=== PATIENT | female | born 1980 | race Caucasian/White ===

== ENCOUNTER 2021-03-08 10:54 | Emergency (ER) | payer BC ==
[2021-03-08 11:20] LABS: BASO # 0.03 (0.02-0.10); EOS # 0.07 (0.04-0.40); EOS % 0.9 % (1.0-5.0); HEMATOCRIT 39.5 % (37.0-47.0); HEMOGLOBIN 13.5 g/dL (12.5-16.0); LYMPH# 1.19 (1.50-4.00); MEAN CELL VOLUME 85 fl (78-100); MEAN CORPUSCULAR HEMOGLOBIN 29 pg (27-31); MEAN CORPUSCULAR HGB CONC 34 g/dL (33-37); MEAN PLATELET VOLUME 10.4 fl (7.4-10.4); MONO # 0.62 (0.20-0.80); NEU # 5.69 (1.40-6.50); PLATELET COUNT 256 K/mm3 (130-400); RED BLOOD COUNT 4.64 M/mm3 (4.10-5.30); RED CELL DISTRIBUTION WIDTH 12.4 % (11.5-14.5); WHITE BLOOD COUNT 7.6 K/mm3 (4.8-10.8)
[2021-03-08 11:32] LABS: ALBUMIN 4.5 g/dL (3.5-5.0); POTASSIUM 4.1 mmol/L (3.5-5.1); SODIUM 139 mmol/L (136-145)
[2021-03-08 11:33] LABS: CALCIUM 9.6 mg/dL (8.3-10.5)
[2021-03-08 11:34] LABS: GLUCOSE 115 mg/dL (65-105); TOTAL PROTEIN 7.3 g/dL (6.4-8.3)
[2021-03-08 11:36] LABS: CARBON DIOXIDE 23 mmol/L (22-29); TOTAL BILIRUBIN 0.7 mg/dL (0.2-1.2)
[2021-03-08 11:40] LABS: AST-SGOT 17 U/L (5-34)
[2021-03-08 11:41] LABS: ALT/SGPT 21 U/L (0-55); LIPASE 15 U/L (8-78)
[2021-03-08 11:48] LABS: TROPONIN-I < 0.03 ng/mL (<0.030)
[2021-03-08 11:54] LABS: URINE APPEARANCE CLEAR; URINE BILIRUBIN NEGATIVE (NEGATIVE); URINE BLOOD NEGATIVE (NEGATIVE); URINE COLOR YELLOW; URINE GLUCOSE NEGATIVE (NEGATIVE); URINE KETONE NEGATIVE (NEGATIVE); URINE LEUKOCYTE ESTERASE NEGATIVE (NEGATIVE); URINE NITRATE NEGATIVE (NEGATIVE); URINE PROTEIN(semi-quant) NEGATIVE (NEGATIVE); URINE UROBILINOGEN NORMAL (NORMAL); URINE WBC 0-1 /hpf (0-3)
[2021-03-08 11:54] LABS: PROTHROMBIN TIME 10.8 SECONDS (9.0-12.0)
[2021-03-08] MEDS ORDERED: PRILOSEC 20MG20 MG PO (12:55)
[2021-03-08 13:15] VITALS: BP 137/90
== END 2021-03-08 13:15 | disposition home or self-care (01) ==
LOC: ED 10:54
PROVIDERS: Nurse Practitioner
DX: K21.9 Gastro-esophageal reflux disease without esophagitis (principal)

== ENCOUNTER 2021-04-24 20:15 | Emergency (ER) | payer BC ==
[~2021-04-24 20:15] MED LIST: PRILOSEC 20MG20 MG PO
[2021-04-24] MEDS ORDERED: CARAFATE1 GM/10 M1 PO (20:26)
[2021-04-24] MEDS ORDERED: PANTOPRAZOLE SO40 MG PO (20:26)
[2021-04-24] MEDS ORDERED: AUGMENTIN 875-1 EAC1 PO (20:27)
[2021-04-24 21:35] LABS: ALBUMIN 4.2 g/dL (3.5-5.0)
[2021-04-24 21:36] LABS: BASO # 0.03 (0.02-0.10); EOS # 0.05 (0.04-0.40); EOS % 0.7 % (1.0-5.0); HEMATOCRIT 39.3 % (37.0-47.0); HEMOGLOBIN 13.3 g/dL (12.5-16.0); MEAN CELL VOLUME 86 fl (78-100); MEAN CORPUSCULAR HEMOGLOBIN 29 pg (27-31); MEAN CORPUSCULAR HGB CONC 34 g/dL (33-37); MEAN PLATELET VOLUME 10.8 fl (7.4-10.4); MONO # 0.62 (0.20-0.80); NEU # 4.43 (1.40-6.50); PLATELET COUNT 228 K/mm3 (130-400); RED BLOOD COUNT 4.56 M/mm3 (4.10-5.30); RED CELL DISTRIBUTION WIDTH 12.9 % (11.5-14.5); WHITE BLOOD COUNT 6.7 K/mm3 (4.8-10.8)
[2021-04-24 21:37] LABS: CALCIUM 9.4 mg/dL (8.3-10.5)
[2021-04-24 21:38] LABS: TOTAL PROTEIN 6.9 g/dL (6.4-8.3)
[2021-04-24 21:40] LABS: TOTAL BILIRUBIN 0.7 mg/dL (0.2-1.2)
[2021-04-24 23:32] VITALS: BP 116/83
== END 2021-04-24 23:32 | disposition home or self-care (01) ==
LOC: ED 20:15
PROVIDERS: Family Medicine
DX: M94.0 Chondrocostal junction syndrome [Tietze] (principal); R00.1 Bradycardia, unspecified; Z87.01 Personal history of pneumonia (recurrent)

== ENCOUNTER → 2021-04-28 | Outpatient (CLI) | payer BC ==
[~2021-04-28] MED LIST changes: +AUGMENTIN 875-1 EAC1 PO; +CARAFATE1 GM/10 M1 PO; +PANTOPRAZOLE SO40 MG PO
== END ==
LOC: AMSURD 13:28
DX: R00.1 Bradycardia, unspecified (principal)

== ENCOUNTER → 2021-06-10 | Outpatient (CLI) | payer OTHER, BC | LOC: RAD 18:59 | DX: Z13.850 Encounter for screening for traumatic brain injury (principal); S06.0X0D Concussion without loss of consciousness, subsequent encounter; S06.2X0D Diffuse traumatic brain injury without loss of consciousness, subsequent encounter ==

== ENCOUNTER → 2024-03-13 | Outpatient (CLI) | payer BC | LOC: LAB 13:27 | DX: M54.10 Radiculopathy, site unspecified (principal); Z87.828 Personal history of other (healed) physical injury and trauma ==

== ENCOUNTER → 2024-03-26 | Outpatient (CLI) | payer BC ==
[~2024-03-26] MED LIST changes: +Gadoterate 20 ML VIAL IV ONE
== END ==
LOC: RAD 15:46
DX: G57.82 Other specified mononeuropathies of left lower limb (principal); Z98.890 Other specified postprocedural states
CPT/HCPCS: A9575

== ENCOUNTER → 2024-05-29 | Outpatient (CLI) | payer BC ==
[~2024-05-29] MED LIST changes: -Gadoterate 20 ML VIAL IV ONE
== END ==
LOC: RAD 07:43
DX: D25.9 Leiomyoma of uterus, unspecified (principal); Z98.890 Other specified postprocedural states